=== PATIENT | female | born 1965 | race Asian ===

== ENCOUNTER 2020-09-27 08:47 | Outpatient (CLI) | payer BC | END 2020-09-27 08:48 | disposition home or self-care (01) | LOC: CSHMAMMO 08:47 | PROVIDERS: ATTEND Internal Medicine | DX: Z78.0 Asymptomatic menopausal state (principal); M85.851 Other specified disorders of bone density and structure, right thigh; M81.0 Age-related osteoporosis without current pathological fracture | CPT/HCPCS: 77080 ==

== ENCOUNTER 2022-11-04 15:39 | Outpatient (CLI) | payer BC | END 2022-11-04 15:40 | disposition home or self-care (01) | LOC: CSHMAMMO 15:39 | PROVIDERS: ATTEND Internal Medicine | DX: Z13.820 Encounter for screening for osteoporosis (principal); M81.0 Age-related osteoporosis without current pathological fracture; Z78.0 Asymptomatic menopausal state | CPT/HCPCS: 77063; 77067; 77080 ==

== ENCOUNTER 2023-03-25 08:55 | Outpatient (CLI) | payer BC | END 2023-03-25 08:56 | disposition home or self-care (01) | LOC: CSHRAD 08:55 | PROVIDERS: ATTEND Internal Medicine | DX: M54.50 Low back pain, unspecified (principal); R05.3 Chronic cough; M47.816 Spondylosis without myelopathy or radiculopathy, lumbar region; M43.17 Spondylolisthesis, lumbosacral region | CPT/HCPCS: 71046; 72100 ==

== ENCOUNTER 2023-11-09 14:12 | Outpatient (CLI) | payer BC | END 2023-11-09 14:13 | disposition home or self-care (01) | LOC: CSHMAMMO 14:12 | PROVIDERS: ATTEND Internal Medicine | DX: Z12.31 Encounter for screening mammogram for malignant neoplasm of breast (principal); M81.0 Age-related osteoporosis without current pathological fracture; M85.851 Other specified disorders of bone density and structure, right thigh; M85.852 Other specified disorders of bone density and structure, left thigh | CPT/HCPCS: 77063; 77067; 77080 ==

== ENCOUNTER 2024-12-19 09:27 | Outpatient (CLI) | payer BC | END 2024-12-19 09:28 | disposition home or self-care (01) | LOC: CSHMAMMO 09:27 | PROVIDERS: ATTEND Family Medicine | DX: M81.0 Age-related osteoporosis without current pathological fracture (principal) | CPT/HCPCS: 77080 ==